=== PATIENT | female | born 1995 | race Two or more races ===

== ENCOUNTER 2019-07-16 07:24 | Inpatient (IN) | payer MEDICAID, SELFPAY ==
[~2019-07-16] VITALS: Ht 165.1 cm; Wt 83.5 kg
[~2019-07-16 07:24] MED LIST: IBUP-1027 PO
[2019-07-16] MEDS ORDERED: IV RINGERS,LACTATED 1000ML 1,000 ML IV SCH ×2 (08:07→09:01)
[2019-07-16 08:34] LABS: AMNIO PT POSITIVE
[2019-07-16] MEDS ORDERED: OXYTOCIN 30 UNIT/500 ML PREMIX 500 ML IV PRN ×3 (09:15→22:15)
[2019-07-16] MEDS ORDERED: 0.9 % SODIUM CHLORIDE 10 ML DISP.SYRIN. IV PRN ×2 (09:15→22:15)
[2019-07-16] MEDS ORDERED: PENICILLIN G K 5,000,000 UNIT in IV DEXTROSE 5% 100ML 100 ML IV ONE (09:15)
[2019-07-16] MEDS ORDERED: CITRIC ACID/SODIUM CITRATE 30 ML SOLUTION. PO PRN (09:15)
[2019-07-16] MEDS ORDERED: TERBUTALINE 1 MG/ML VIAL. SQ PRN (09:15)
[2019-07-16] MEDS ORDERED: LIDOCAINE 1% PF 30 ML VIAL. INJ PRN (09:15)
[2019-07-16] MEDS ORDERED: fentaNYL PF VIAL 100 MCG/2 ML VIAL IVP PRN ×2 (09:15)
[2019-07-16 09:23] LABS: BARBITURATES NEG (NEG); BENZODIAZEPINES NEG (NEG); CANNABINOIDS NEG (NEG); COCAINE NEG (NEG); METHADONE NEG (NEG); OPIATES NEG (NEG); PHENCYCLIDINE NEG (NEG)
[2019-07-16 09:25] LABS: AMPHETAMINE/METHAMPHETAMINE NEG (NEG)
[2019-07-16 10:36] LABS: BASO # 0.1 x10^3/uL (0.0-0.2); BASO % 0 % (0-3); EOS # 0.3 x10^3/uL (0.0-0.7); EOS % 2 % (0-3); HEMATOCRIT 36.4 % (36.0-47.0); HEMOGLOBIN 12.4 g/dL (12.0-15.5); LYMPH # 3.1 x10^3/uL (1.0-4.8); LYMPH % 23 % (24-48); MEAN CORPUSCULAR HEMOGLOBIN 29 pg (25-35); MEAN CORPUSCULAR HGB CONC 34 g/dL (31-37); MEAN CORPUSCULAR VOLUME 85 fL (79-100); MONO # 0.8 x10^3/uL (0.0-1.1); MONO % 6 % (0-9); NEUT % 68 % (31-73); PLATELET COUNT 229 x10^3/uL (140-400); RED BLOOD COUNT 4.28 x10^6/uL (3.50-5.40); RED CELL DISTRIBUTION WIDTH 13.2 % (11.5-14.5); WHITE BLOOD COUNT 13.3 x10^3/uL (4.0-11.0)
[2019-07-16 11:16] VITALS: BP 120/74
--- NOTE | 2019-07-16 13:11 | PDOC1 ---
OB - History Hx of Present Care: Good Care Ultrasounds: Normal mid trimester US Obstetrical Complications: None Medical Complications: None Past Family/Social History * Past Medical, Surgical, Family and Obstetric Histories reviewed from chart. Rubella: Immune RPR/VDRL: Negative GBS Status: Unknown HBsAG: Negative OB - Chief Complaint & HPI Date of Admission: Date of Admission: July 16, 2019 at 07:24 Chief Complaint/History : 2 Para: 1 EGA: 38 Reason for admission: active labor, rupture of membranes Admission Nurse Assessment Rev: Yes OB - Admission Exam Physical Exam Vitals: VS - Last 72 Hours, by Label Date Time Temp Pulse Resp B/P (MAP) Pulse Ox O2 Delivery O2 Flow Rate FiO2 07/16/19 11:16 98.1 99 20 120/74 (89) 98.1 HEENT: Normal Heart: Regular Rate Lungs: Clear Abdomen: Gravid, Non tender, Soft Extremities: Edema Reflexes: Normal Cervical Dilatation: 1cm Effacement: 75% Station: -3 Membranes: Ruptured Amniotic Fluid: Clear Accelerations: Accelerations Present Decelerations: No decelerations Contractions on Admission: None Text 38 wks IUP SROM Active labor P: Admit labor management. Start pitocin augmentation and Pen G prophylaxis for prolonged ROM. CONRADO VERGARA Jr, MD July 16, 2019 13:11
[2019-07-16] MEDS: PENICILLIN G K 2,500,000 UNIT in IV DEXTROSE 5% 50 ML IV SCH ×3 (14:02→20:37)
[2019-07-16] MEDS ORDERED: ceFAZolin 2GM PREMIX 2 GM/50 ML BAG IV ONE (20:00)
[2019-07-16] MEDS ORDERED: OXYTOCIN 10 UNIT/ML VIAL. ONE (20:27)
[2019-07-16] MEDS ORDERED: MORPHINE PF 10 MG/10 ML AMPUL. ONE (20:28)
[2019-07-16] MEDS ORDERED: KETOROLAC 30 MG/ML VIAL. IV PRN ×2 (21:00→22:15)
[2019-07-16] MEDS ORDERED: CITRIC ACID/SODIUM CITRATE 30 ML SOLUTION. PO ONE (21:00)
[2019-07-16] MEDS ORDERED: fentaNYL PF VIAL 100 MCG/2 ML VIAL ONE (21:04)
[2019-07-16] MEDS ORDERED: ePHEDrine PF IN SALINE 50 MG/10 ML SYRINGE. IV ONE (21:12)
[2019-07-16] MEDS ORDERED: METOCLOPRAMIDE HCL 10 MG/2 ML VIAL. ONE (21:29)
[2019-07-16] MEDS ORDERED: AZITHRMYCN 500MG IVPB FOR OMNI 250 ML IV ONE (21:30)
[2019-07-16] MEDS ORDERED: AZITHROMYCIN 500 MG in IV NORMAL SALINE 250ML 250 ML IV ONE (21:30)
--- NOTE | 2019-07-16 22:08 | PDOC4 ---
OB Operative Note Date: July 16, 2019 PRE OP DIAGNOSIS: Other (FTP) POST OP DIAGNOSIS: Other (SAme) OPERATION PERFORMED: [facility] Surgeon Dr. Peterson Anesthesia: Regional (Spinal) Blood Loss 500 ml Specimen placenta and OB Findings: Position (Vertex), Sex (Male), (8/9), Weight (7 Lb 11 oz) Complications none Additional Remarks pt. CONRADO Willson Jr, MD July 16, 2019 22:08
[2019-07-16] MEDS ORDERED: diphenhydrAMINE ORAL ELIXIR 12.5 MG/5 ML ML PO PRN (22:15)
[2019-07-16] MEDS ORDERED: MAG HYDROX/ALUMINUM HYD/SIMETH 30 ML ORAL.SUSP PO PRN (22:15)
[2019-07-16] MEDS ORDERED: ONDANSETRON PF 4 MG/2 ML VIAL. IV PRN (22:15)
[2019-07-16] MEDS ORDERED: SIMETHICONE 80 MG TAB.CHEW PO PRN (22:15)
[2019-07-16] MEDS ORDERED: ZOLPIDEM 5 MG TABLET. PO PRN (22:15)
--- NOTE | 2019-07-16 22:17 | OP ---
DATE OF SURGERY: 07/16/2019 PREOPERATIVE DIAGNOSES: 1. A 38 weeks intrauterine . 2. Spontaneous rupture of membranes with prolonged rupture of membranes. 3. Failure to progress. POSTOPERATIVE DIAGNOSES: 1. A 38 weeks intrauterine . 2. Spontaneous rupture of membranes with prolonged rupture of membranes. 3. Failure to progress.. PROCEDURE: Primary low transverse section. SURGEON: Conrado Peterson MD ANESTHESIA: Spinal. ESTIMATED BLOOD LOSS: 500 mL. COMPLICATIONS: None. FINDINGS: Viable male , Apgars 8 and 9, weight 7 pounds 11 ounces. Three-vessel cord placenta delivered manually intact. SUMMARY: A 24-year-old 2, para 1, presented with spontaneous rupture of membranes. She had prolonged rupture of membranes. She was provided penicillin G. The patient progressed only up to 4 cm and then failed to progress any further. She was counseled on the risks, benefits and expectations of section and voiced a clear understanding to proceed. DESCRIPTION OF PROCEDURE: The patient was taken to surgery suite and placed in dorsal supine position. She was prepped with ChloraPrep and draped in a sterile fashion. After adequate anesthesia, Pfannenstiel skin incision was made with scalpel down to and through the fascia. The fascia was extended laterally using curved Dow scissors. Superior edge of fascia was grasped with two Yusra clamps and dissected free of the abdominal rectus muscles using blunt dissection along with Bovie cautery. The same process took place inferiorly. The abdominal rectus muscle dissected bluntly at the midline. Peritoneum was grasped with 2 hemostats and entered sharply with Metzenbaum scissors. This incision was extended superiorly as well as inferiorly. The Roberto Carlos ring retractor was placed. Low transverse hysterotomy incision was made with scalpel down to the infant. Hysterotomy incision was extended laterally as well as superiorly digitally. With the aid of fundal pressure, the infant's head was delivered in a smooth atraumatic manner. With additional fundal pressure, the anterior shoulder was delivered followed by posterior shoulder and rest of male infant was delivered. Infant was suctioned with a bulb syringe orally and nasally, umbilical cord was clamped twice and cut. Viable male was handed to waiting nursing staff. Umbilical cord blood was then obtained. Three-vessel cord placenta was delivered manually intact. The uterus was then exteriorized and cleared of clot and debris with a moist lap. The hysterotomy incision was reapproximated using #1 Vicryl suture in running locked fashion. The uterus palpated firm. Fallopian tubes and ovaries appeared normal bilaterally. Posterior cul-de-sac was cleared of clot and debris with a moist lap. The uterus was then returned to the abdomen. The pericolic gutters were cleared of clot and debris with moist lap. Hysterotomy incision was reviewed and was hemostatic. The Roberto Carlos ring retractor was removed. The peritoneum was reapproximated using #1 Vicryl suture in running fashion. The abdominal rectus muscles were reapproximated using #1 Vicryl suture in an interrupted fashion. The fascia was reapproximated using 0 Vicryl suture in running fashion. Skin was reapproximated using 4-0 Vicryl suture in subcuticular manner. The patient tolerated the procedure well and was taken to recovery room in stable condition. Sponge and needle count correct x 3. CONRADO PETERSON MD DR: AGUSTIN/brandon JOB#: [id number] / [id number]
[2019-07-17] VITALS (7 sets, daily range): BP systolic 104–114; BP diastolic 48–68
[2019-07-17 05:55] LABS: BASO % 0 % (0-3); EOS % 0 % (0-3); HEMATOCRIT 32.9 % (36.0-47.0); HEMOGLOBIN 11.5 g/dL (12.0-15.5); LYMPH # 2.4 x10^3/uL (1.0-4.8); LYMPH % 11 % (24-48); MEAN CORPUSCULAR HEMOGLOBIN 30 pg (25-35); MEAN CORPUSCULAR HGB CONC 35 g/dL (31-37); MEAN CORPUSCULAR VOLUME 85 fL (79-100); MONO # 1.2 x10^3/uL (0.0-1.1); MONO % 6 % (0-9); NEUT # 17.3 x10^3/uL (1.8-7.7); NEUT % 83 % (31-73); PLATELET COUNT 236 x10^3/uL (140-400); RED BLOOD COUNT 3.89 x10^6/uL (3.50-5.40); RED CELL DISTRIBUTION WIDTH 13.1 % (11.5-14.5); WHITE BLOOD COUNT 20.8 x10^3/uL (4.0-11.0)
[2019-07-17 07:03] LABS: % BANDS 1 % (0-9); % LYMPHS 13 % (24-48); % MONOS 3 % (0-10); % SEGS 83 % (35-66); PLT ESTIMATE ADEQUATE (ADEQUATE)
[2019-07-17] MEDS ORDERED: FERROUS SULFATE 325 MG TABLET. PO SCH (08:00)
--- NOTE | 2019-07-17 09:24 | PDOC ---
OB Progress Note Date of Service 07/17/19 Time of Evaluation 0915 Notes Pt. feeling well. No complaints. Pain controlled. Pt. tolerating regular diet. Lab Laboratory Tests Test 07/16/19 08:00 07/16/19 08:05 07/16/19 08:50 07/16/19 09:39 Urine Opiates Screen Neg (NEG) Urine Methadone Screen Neg (NEG) Urine Barbiturates Neg (NEG) Urine Phencyclidine Screen Neg (NEG) Urine Amphetamine/Methamphetamine Neg (NEG) Urine Benzodiazepines Screen Neg (NEG) Urine Cocaine Screen Neg (NEG) Urine Cannabinoids Screen Neg (NEG) Urine Ethyl Alcohol Neg (NEG) Amniotic Fluid Swab Test Positive Coronavirus (COVID-19)(PCR) See separate report White Blood Count 13.3 x10^3/uL (4.0-11.0) Red Blood Count 4.28 x10^6/uL (3.50-5.40) Hemoglobin 12.4 g/dL (12.0-15.5) Hematocrit 36.4 % (36.0-47.0) Mean Corpuscular Volume 85 fL (79-100) Mean Corpuscular Hemoglobin 29 pg (25-35) Mean Corpuscular Hemoglobin Concent 34 g/dL (31-37) Red Cell Distribution Width 13.2 % (11.5-14.5) Platelet Count 229 x10^3/uL (140-400) Neutrophils (%) (Auto) 68 % (31-73) Lymphocytes (%) (Auto) 23 % (24-48) Monocytes (%) (Auto) 6 % (0-9) Eosinophils (%) (Auto) 2 % (0-3) Basophils (%) (Auto) 0 % (0-3) Neutrophils # (Auto) 9.0 x10^3/uL (1.8-7.7) Lymphocytes # (Auto) 3.1 x10^3/uL (1.0-4.8) Monocytes # (Auto) 0.8 x10^3/uL (0.0-1.1) Eosinophils # (Auto) 0.3 x10^3/uL (0.0-0.7) Basophils # (Auto) 0.1 x10^3/uL (0.0-0.2) Treponema pallidum Antibody Nonreactive (Nonreactive) Test 07/17/19 04:50 White Blood Count 20.8 x10^3/uL (4.0-11.0) Red Blood Count 3.89 x10^6/uL (3.50-5.40) Hemoglobin 11.5 g/dL (12.0-15.5) Hematocrit 32.9 % (36.0-47.0) Mean Corpuscular Volume 85 fL (79-100) Mean Corpuscular Hemoglobin 30 pg (25-35) Mean Corpuscular Hemoglobin Concent 35 g/dL (31-37) Red Cell Distribution Width 13.1 % (11.5-14.5) Platelet Count 236 x10^3/uL (140-400) Neutrophils (%) (Auto) 83 % (31-73) Lymphocytes (%) (Auto) 11 % (24-48) Monocytes (%) (Auto) 6 % (0-9) Eosinophils (%) (Auto) 0 % (0-3) Basophils (%) (Auto) 0 % (0-3) Neutrophils # (Auto) 17.3 x10^3/uL (1.8-7.7) Lymphocytes # (Auto) 2.4 x10^3/uL (1.0-4.8) Monocytes # (Auto) 1.2 x10^3/uL (0.0-1.1) Eosinophils # (Auto) 0.0 x10^3/uL (0.0-0.7) Basophils # (Auto) 0.0 x10^3/uL (0.0-0.2) Segmented Neutrophils % 83 % (35-66) Band Neutrophils % 1 % (0-9) Lymphocytes % 13 % (24-48) Monocytes % 3 % (0-10) Platelet Estimate Adequate (ADEQUATE) Laboratory Tests Test 07/16/19 09:39 07/17/19 04:50 White Blood Count 13.3 x10^3/uL (4.0-11.0) 20.8 x10^3/uL (4.0-11.0) Red Blood Count 4.28 x10^6/uL (3.50-5.40) 3.89 x10^6/uL (3.50-5.40) Hemoglobin 12.4 g/dL (12.0-15.5) 11.5 g/dL (12.0-15.5) Hematocrit 36.4 % (36.0-47.0) 32.9 % (36.0-47.0) Mean Corpuscular Volume 85 fL (79-100) 85 fL (79-100) Mean Corpuscular Hemoglobin 29 pg (25-35) 30 pg (25-35) Mean Corpuscular Hemoglobin Concent 34 g/dL (31-37) 35 g/dL (31-37) Red Cell Distribution Width 13.2 % (11.5-14.5) 13.1 % (11.5-14.5) Platelet Count 229 x10^3/uL (140-400) 236 x10^3/uL (140-400) Neutrophils (%) (Auto) 68 % (31-73) 83 % (31-73) Lymphocytes (%) (Auto) 23 % (24-48) 11 % (24-48) Monocytes (%) (Auto) 6 % (0-9) 6 % (0-9) Eosinophils (%) (Auto) 2 % (0-3) 0 % (0-3) Basophils (%) (Auto) 0 % (0-3) 0 % (0-3) Neutrophils # (Auto) 9.0 x10^3/uL (1.8-7.7) 17.3 x10^3/uL (1.8-7.7) Lymphocytes # (Auto) 3.1 x10^3/uL (1.0-4.8) 2.4 x10^3/uL (1.0-4.8) Monocytes # (Auto) 0.8 x10^3/uL (0.0-1.1) 1.2 x10^3/uL (0.0-1.1) Eosinophils # (Auto) 0.3 x10^3/uL (0.0-0.7) 0.0 x10^3/uL (0.0-0.7) Basophils # (Auto) 0.1 x10^3/uL (0.0-0.2) 0.0 x10^3/uL (0.0-0.2) Treponema pallidum Antibody Nonreactive (Nonreactive) Segmented Neutrophils % 83 % (35-66) Band Neutrophils % 1 % (0-9) Lymphocytes % 13 % (24-48) Monocytes % 3 % (0-10) Platelet Estimate Adequate (ADEQUATE) Medications Current Medications Ringer's Solution 1,000 ml @ 125 mls/hr Q8H IV Last administered on 07/16/19at 10:20; Start 07/16/19 at 08:07; Stop 07/16/19 at 11:07; Status DC Sodium Chloride (Normal Saline Flush) 3 ml QSHIFT PRN IV AFTER MEDS AND BLOOD DRAWS; Start 07/16/19 at 09:15 Ringer's Solution 1,000 ml @ 125 mls/hr Q8H IV Last administered on 07/16/19at 13:33; Start 07/16/19 at 09:01 Fentanyl Citrate (Fentanyl 2ml Vial) 50 mcg PRN Q30MIN PRN IVP Mild to moderate pain; Start 07/16/19 at 09:15 Fentanyl Citrate (Fentanyl 2ml Vial) 100 mcg PRN Q30MIN PRN IVP Severe pain Last administered on 07/16/19at 19:48; Start 07/16/19 at 09:15 Citric Acid/ Sodium Citrate (Bicitra) 30 ml 1X PRN PRN PO DYSPEPSIA; Start 07/16/19 at 09:15; Stop 07/17/19 at 09:14 Terbutaline Sulfate (Brethine) 0.25 mg 1X PRN PRN SQ SEE COMMENTS; Start 07/16/19 at 09:15; Stop 07/17/19 at 09:14 Lidocaine HCl (Xylocaine 1% Pf 30ml Vial) 30 ml 1X PRN PRN INJ SEE COMMENTS; Start 07/16/19 at 09:15; Stop 07/18/19 at 09:14 Oxytocin/Sodium Chloride 500 ml @ 0 mls/hr CONT PRN IV SEE I/O RECORD Last administered on 07/16/19at 10:21; Start 07/16/19 at 09:15 Oxytocin/Sodium Chloride 500 ml @ 0 mls/hr CONT PRN PRN IV Post delivery bleeding; Start 07/16/19 at 09:15 Ibuprofen (Motrin) 800 mg PRN Q6HRS PRN PO PAIN; Start 07/16/19 at 09:15 Penicillin G Potassium [id number] unit/Dextrose 100 ml @ 100 mls/hr 1X ONCE IV Last administered on 07/16/19at 10:20; Start 07/16/19 at 09:15; Stop 07/16/19 at 10:14; Status DC Penicillin G Potassium [id number] unit/Dextrose 50 ml @ 100 mls/hr Q4H IV Last administered on 07/16/19at 20:37; Start 07/16/19 at 13:00; Stop 07/16/19 at 21:30; Status DC Oxytocin (Pitocin) 10 unit STK-MED ONCE .ROUTE ; Start 07/16/19 at 20:27; Stop 07/16/19 at 20:28; Status DC Morphine Sulfate (Morphine Preservative Free) 10 mg STK-MED ONCE .ROUTE ; Start 07/16/19 at 20:28; Stop 07/16/19 at 20:28; Status DC Cefazolin Sodium/ Dextrose 50 ml @ 100 mls/hr 1X ONCE IV ; Start 07/16/19 at 21:00; Stop 07/16/19 at 21:29; Status DC Ketorolac Tromethamine (Toradol 30mg Vial) 30 mg PRN Q6HRS PRN IV PAIN Last administered on 07/17/19at 05:54; Start 07/16/19 at 21:00; Stop 07/21/19 at 20:59 Citric Acid/ Sodium Citrate (Bicitra) 30 ml 1X ONCE PO ; Start 07/16/19 at 21:00; Stop 07/16/19 at 21:01; Status DC Fentanyl Citrate (Fentanyl 2ml Vial) 100 mcg STK-MED ONCE .ROUTE ; Start 07/16/19 at 21:04; Stop 07/16/19 at 21:04; Status DC Azithromycin 250 ml @ 250 mls/hr 1X ONCE IV ; Start 07/16/19 at 21:30; Stop 07/16/19 at 22:29; Status Cancel Ephedrine Sulfate (ePHEDrine PF IN SALINE SYRINGE) 50 mg STK-MED ONCE IV ; Start 07/16/19 at 21:12; Stop 07/16/19 at 21:12; Status DC Ephedrine Sulfate (ePHEDrine PF IN SALINE SYRINGE) 50 mg STK-MED ONCE IV ; Start 07/16/19 at 21:12; Stop 07/16/19 at 21:12; Status DC Azithromycin 500 mg/Sodium Chloride 250 ml @ 250 mls/hr 1X ONCE IV ; Start 07/16/19 at 21:30; Stop 07/16/19 at 22:29; Status DC Metoclopramide HCl (Reglan Vial) 10 mg STK-MED ONCE .ROUTE ; Start 07/16/19 at 21:29; Stop 07/16/19 at 21:29; Status DC Sodium Chloride (Normal Saline Flush) 3 ml QSHIFT PRN IV AFTER MEDS AND BLOOD DRAWS; Start 07/16/19 at 22:15 Oxytocin/Sodium Chloride 500 ml @ 125 mls/hr CONT PRN IV EXCESSIVE POST- BLEEDING; Start 07/16/19 at 22:15; Stop 07/17/19 at 06:14; Status DC Ibuprofen (Motrin) 800 mg PRN Q8HRS PRN PO INFLAMMATION; Start 07/16/19 at 22:15 Ondansetron HCl (Zofran) 4 mg PRN Q6HRS PRN IV NAUSEA/VOMITING; Start 07/16/19 at 22:15 Docusate Sodium (Colace) 100 mg PRN BID PRN PO HARD STOOL; Start 07/16/19 at 22:15 Al Hydroxide/Mg Hydroxide (Mylanta Plus Xs) 30 ml PRN Q4HRS PRN PO HEARTBURN / GAS; Start 07/16/19 at 22:15 Simethicone (Gas-X) 80 mg PRN AFTMEALHC PRN PO GAS / BLOATING; Start 07/16/19 at 22:15 Diphenhydramine HCl (Benadryl Oral Elixir) 12.5 mg PRN Q6HRS PRN PO ITCHING; Start 07/16/19 at 22:15 Ferrous Sulfate (Feosol) 325 mg BIDWMEALS PO ; Start 07/17/19 at 08:00 Zolpidem Tartrate (Ambien) 5 mg PRN QHS PRN PO INSOMNIA, MAY REPEAT X1; Start 07/16/19 at 22:15 Oxycodone/ Acetaminophen (Percocet 5/325) 2 tab PRN Q4HRS PRN PO MODERATE PAIN, SEVERE PAIN; Start 07/16/19 at 22:15 Ketorolac Tromethamine (Toradol 30mg Vial) 30 mg PRN Q6HRS PRN IV PAIN; Start 07/16/19 at 22:15; Stop 6/1/20 at 22:14 Multivitamins (Thera M Plus) 1 tab DAILY PO ; Start 07/17/19 at 09:00 Active Scripts Active Ibuprofen 400 Mg Tablet 800 Mg PO PRN Q8HRS PRN Exam Abd: soft, mild tenderness, fundus firm Bandage removed. Incision site: clean, dry and intact Assessment POD#1 s/p c/s Plan of Care: Continue current Tx, Mgmt CONRADO VERGARA Jr, MD July 17, 2019 09:24
[2019-07-17] MEDS ORDERED: DOCU-153 PO (09:32)
[2019-07-17] MEDS ORDERED: IBUP-1027 PO (09:32)
[2019-07-17] MEDS ORDERED: OXYC1TAB15 PO (09:32)
--- NOTE | 2019-07-17 09:33 | DISCH ---
DISCHARGE INSTRUCTIONS Condition on Discharge Condition on Discharge: Stable Activity After Discharge Activity Instructions for Disc: Activity as tolerated Lifting Instructions after Dis: No heavy lifting, Do not lift >10 pounds Exercise Instruction after Dis: Progress as tolerated Driving Instructions after Dis: No driving for 2 weeks Diet after Discharge Diet after Discharge: Regular Contacting the DRScott after DC Call your doctor for: Concerns you may have Follow-Up Follow up with: Dr. Peterson in 2 wks Treatment/Equipment after DC Adaptive Equipment Issued: None CONRADO PETERSON Jr, MD July 17, 2019 09:33
[2019-07-17] MEDS: IBUPROFEN 400 MG TABLET. PO PRN (14:12)
[2019-07-17] MEDS: oxyCODONE/APAP 5/325 1 TAB TABLET PO PRN (14:12)
[2019-07-18] MEDS: oxyCODONE/APAP 5/325 1 TAB TABLET PO PRN ×2 (01:59→17:23)
[2019-07-18 02:00] VITALS: BP 98/52
[2019-07-18] MEDS: IBUPROFEN 400 MG TABLET. PO PRN ×3 (02:00→17:23)
[2019-07-18] MEDS ORDERED: MAGNESIUM HYDROXIDE 2,400 MG/30 ML ORAL.SUSP. PO PRN (09:00)
[2019-07-18] MEDS ORDERED: BISACODYL 10 MG SUPP.RECT. PR PRN (09:00)
[2019-07-18] MEDS: MULTIVITAMIN with MINERAL TABLET. PO SCH (09:00)
[2019-07-18] MEDS: DOCUSATE SODIUM 100 MG CAPSULE. PO PRN (09:15)
--- NOTE | 2019-07-18 09:43 | PDOC ---
DIRECTOR OF INSTRUCTIONAL TECHNOLOGY PROGRESS NOTE Subjective: Pt with good pain control. Thompson PO. Voiding. Minimal lochia. (+) flatus Objective: Objective: Inc: C/D/I Vital Signs: Vital Signs Date Time Temp Pulse Resp B/P (MAP) Pulse Ox O2 Delivery O2 Flow Rate FiO2 07/17/19 11:15 98.5 87 18 105/48 (67) 97 Room Air 98.5 Vital Signs Date Time Temp Pulse Resp B/P (MAP) Pulse Ox O2 Delivery O2 Flow Rate FiO2 07/18/19 02:00 98.8 81 18 98/52 (67) 98 Room Air 98.8 Physical Exam: GENERAL: No apparent distress. Alert and oriented. HEENT: Head normocephalic, atraumatic. NECK: Supple LUNGS: Clear to auscultation. HEART: RRR, S1, S2 present, pulses intact ABDOMEN: Soft, positive bowel sounds. EXTREMITIES: No cyanosis or edema. NEUROLOGIC: Normal speech, normal tone PSYCHIATRIC: Normal affect, normal mood. SKIN: No ulceration. Assessment & Plan: A/P 24y POD #2 s/p primary LTCS 1.) PO doing well 2.) Hgb 12.4 -> 11.5 3.) Cont PO care SEAN BORDEN MD July 18, 2019 09:43
[2019-07-18 10:20] VITALS: BP 111/76
[2019-07-18 16:10] VITALS: BP 94/57
[2019-07-18 21:20] VITALS: BP 100/65
[2019-07-19 06:20] VITALS: BP 107/67
[2019-07-19] MEDS ORDERED: OXYC1TAB15 PO (07:44)
[2019-07-19] MEDS ORDERED: IBUP-1060 PO (07:44)
[2019-07-19] MEDS ORDERED: DOCU-109 PO (07:44)
--- NOTE | 2019-07-19 07:46 | PDOC ---
FLIGHT/TRANSPORT NURSE PROGRESS NOTE Subjective: Pt with good pain control. Thompson PO. Voiding. Minimal lochia Objective: Objective: Inc: C/D/I no C/C/E Vital Signs: Vital Signs Date Time Temp Pulse Resp B/P (MAP) Pulse Ox O2 Delivery O2 Flow Rate FiO2 07/18/19 08:00 Room Air 07/18/19 10:20 98.4 76 18 111/76 (88) 99 98.4 Vital Signs Date Time Temp Pulse Resp B/P (MAP) Pulse Ox O2 Delivery O2 Flow Rate FiO2 07/19/19 06:20 98.1 83 18 107/67 (80) 99 Room Air 98.1 Physical Exam: GENERAL: No apparent distress. Alert and oriented. HEENT: Head normocephalic, atraumatic. NECK: Supple LUNGS: Clear to auscultation. HEART: RRR, S1, S2 present, pulses intact ABDOMEN: Soft, positive bowel sounds. EXTREMITIES: No cyanosis or edema. NEUROLOGIC: Normal speech, normal tone PSYCHIATRIC: Normal affect, normal mood. SKIN: No ulceration. Assessment & Plan: A/P 24y POD #3 s/p primary LTCS 1.) PO doing well 2.) Hgb 12.4 -> 11.5 3.) D/c home SEAN BORDEN MD July 19, 2019 07:46
[2019-07-19] MEDS: MULTIVITAMIN with MINERAL TABLET. PO SCH (08:19)
[2019-07-19] MEDS: IBUPROFEN 400 MG TABLET. PO PRN (08:19)
[2019-07-19] MEDS: DOCUSATE SODIUM 100 MG CAPSULE. PO PRN (08:20)
[2019-07-19 13:30] VITALS: BP 114/78
--- NOTE | 2019-07-19 13:58 | NUR ---
Discharge Discharge and incisional instructions given to patient per weed burner phone (#[phone]), no questions or concerns noted at this time. To follow up in [address] Peterson.
--- NOTE | 2019-07-30 12:53 | DS ---
DATE OF DISCHARGE: 07/19/2019 ADMIT DIAGNOSES: Term gestation with rupture of membranes, active labor. DISCHARGE DIAGNOSES: Term gestation with rupture of membranes, active labor. PROCEDURE: Primary low-transverse section. SURGEON: Tyron Peterson MD HOSPITAL COURSE: Term gestation, presented with rupture of membranes and active labor. The patient failed to progress and required section. The patient did well following section, went home postop day #3 in good condition. DISCHARGE DIET: Regular diet. DISCHARGE INSTRUCTIONS: Pelvic rest x 6 weeks, no driving x 2 weeks, no lifting greater than 20 pounds x 6 weeks. FOLLOWUP: The patient is to follow up in clinic in 2 weeks for incision check. TYRON PETERSON MD DR: AGUSTIN/brandon JOB#: [id number] / [id number]
== END 2019-07-19 14:21 | disposition home or self-care (01) | DRG 788 ==
LOC: 3 SO LND 07:24 → OBSVTOIN 22:09 → 3 NORTH 07-17 01:00
PROVIDERS: ADMIT Obstetrics & Gynecology; ATTEND Obstetrics & Gynecology
PROC: 10D00Z1 Extraction of Products of Conception, Low, Open Approach (ICD-10-PCS; principal; 2019-07-16)
DX: O42.92 Full-term premature rupture of membranes, unspecified as to length of time between rupture and onset of labor (principal); O62.2 Other uterine inertia; Z20.828 Contact with and (suspected) exposure to other viral communicable diseases; Z37.0 Single live birth; Z3A.38 38 weeks gestation of pregnancy
CPT/HCPCS: 36415; 80307; 84112; 85007; 85025; 86592; 86850; 86900; 86901; 87653; G0378; G0379; J0690; J1885; J2274; J2540; J2590; J2765; J3010; J7030; J7060; J7120; U0003-CS